=== PATIENT | male | born 1965 | race Two or more races ===

== ENCOUNTER 2022-10-12 17:58 | Emergency (ER) | payer OTHER ==
[2022-10-12] MEDS ORDERED: Sodium Chloride 0.9% 10 ML Syringe FLUSH PRN (18:36)
[2022-10-12] MEDS ORDERED: Cephalexin 500 MG Cap PO ONE (21:12)
== END 2022-10-12 21:29 | disposition home or self-care (01) ==
LOC: JD.ED 17:58
DX: L03.115 Cellulitis of right lower limb (principal); Z79.899 Other long term (current) drug therapy
CPT/HCPCS: 36415; 80053; 83735; 85025; 86140; 93971; 99284; A9270; J3490